=== PATIENT | male | born 1975 | race Caucasian/White ===

== ENCOUNTER 2020-10-27 14:12 | Emergency (ER) | payer OTHER ==
[~2020-10-27 14:12] MED LIST: ANUSOL HC SUPP1 SUPP PR; ANUSOL-HC CREAM30 GM PR; BACTRIM DS TAB1 EACH PO; IBUPROFEN600 MG PO; KEFLEX CAP 500500 MG PO
[2020-10-27 19:27] LABS: HEMOGLOBIN 10.6 gm/dl (14.0-17.5); RED BLOOD COUNT 4.1 M/UL (4.20-5.50); WHITE BLOOD COUNT 12.8 K/UL (4.5-11.0)
[2020-10-27 19:53] LABS: BUN/CREATININE RATIO 28 (0-10)
== END 2020-10-27 22:46 | disposition short-term general hospital (02) ==
LOC: ER1 14:12
PROVIDERS: Family Medicine
DX: R10.12 Left upper quadrant pain (principal); M86.9 Osteomyelitis, unspecified; M46.44 Discitis, unspecified, thoracic region; F19.10 Other psychoactive substance abuse, uncomplicated; Z20.822 Contact with and (suspected) exposure to COVID-19; I10 Essential (primary) hypertension; M06.9 Rheumatoid arthritis, unspecified; Z88.8 Allergy status to other drugs, medicaments and biological substances; Z79.899 Other long term (current) drug therapy
CPT/HCPCS: 0240U; 36415; 71046; 80053; 80307; 81001; 82009; 82550; 82553; 83605; 83690; 83735; 83874; 84484; 85025; 87040; 93005; 96365; 96366; 96375; 96376; 99285; J0692; J2270; J2405; J3370; Q9967

== ENCOUNTER → 2020-11-06 | Outpatient (CLI) | payer OTHER ==
[~2020-11-06] VITALS: Ht 198.1 cm; Wt 110.2 kg
== END ==
LOC: OPSV 09:00
DX: M46.44 Discitis, unspecified, thoracic region (principal); M46.24 Osteomyelitis of vertebra, thoracic region
CPT/HCPCS: 96365; J0878

== ENCOUNTER → 2020-11-13 | Outpatient (CLI) | payer OTHER ==
[~2020-11-13] VITALS: Ht 198.1 cm; Wt 110.2 kg
[2020-11-13 11:24] LABS: RED BLOOD COUNT 3.97 M/UL (4.20-5.50); WHITE BLOOD COUNT 15.3 K/UL (4.5-11.0)
[2020-11-13 11:56] LABS: BUN/CREATININE RATIO 36 (0-10)
== END ==
LOC: OPSV 08:50
PROVIDERS: Student in an Organized Health Care Education/Training Program
DX: M46.44 Discitis, unspecified, thoracic region (principal); M46.24 Osteomyelitis of vertebra, thoracic region
CPT/HCPCS: 80053; 82550; 85025; 86140; 96365; J0878

== ENCOUNTER 2021-12-19 11:48 | Emergency (ER) | payer OTHER ==
[2021-12-19] MEDS ORDERED: AMOXICILLIN875 MG PO (13:32)
== END 2021-12-19 13:56 | disposition home or self-care (01) ==
LOC: ER1 11:48
DX: J02.0 Streptococcal pharyngitis (principal); I10 Essential (primary) hypertension; Z88.6 Allergy status to analgesic agent; Z20.822 Contact with and (suspected) exposure to COVID-19
CPT/HCPCS: 0240U; 87081; 87880; 99283